=== PATIENT | female | born 1955 | race Caucasian/White ===

== ENCOUNTER → 2022-05-10 13:42 | Outpatient (CLI) | payer MEDICARE, OTHER, SELFPAY ==
--- NOTE | 2022-05-10 | DI.MRI.S_ITS ---
PROCEDURE: MR LUMBAR SPINE WO CON INDICATIONS: Radiculopathy, lumbar region TECHNIQUE: Noncontrast sagittal T1 spin echo and T2 fast echo, sagittal STIR, and T2 fast spin echo through the lumbar spine. COMPARISON: [facility] [place], [place], XR LUMBAR SPINE WITH OBLIQUES PLUS FLEXION EXTENSION, 05/01/2022, 14:17. FINDINGS: Image quality: Excellent. Alignment and Curvature: There is 2 mm grade 1 retrolisthesis of L1 on L2 and trace 1 mm grade 1 retrolisthesis of L2 on L3 and L3 on L4. Mild 3 mm grade 1 retrolisthesis of L5 on S1. Bone Marrow: Marrow is of normal overall signal. Modic type 1 degenerative endplate changes are seen at the anterosuperior endplate of T12. No acute vertebral body compression fractures. Spinal Cord: Conus medullaris terminates at the L1-2 disc space level. Visualized cord demonstrates normal signal and size. Paraspinous Soft Tissues: No paravertebral masses. There is grade 2 fatty infiltration of the paraspinous musculature. T12-L1: There is no significant disc bulging, spinal canal stenosis, or neural foraminal narrowing. L1-L2: Mild grade 1 retrolisthesis of L1 on L2 with disc desiccation and loss of disc space height as well as circumferential disc bulging and right paracentral disc protrusion. Findings is all in mild narrowing of the bilateral neural foramina without significant spinal canal stenosis. L2-L3: Trace grade 1 retrolisthesis of L2 on L3, disc desiccation and loss of disc space height, and circumferential disc bulging is seen with mild crowding of the lateral recesses, but no significant spinal canal stenosis or neural foraminal narrowing. L3-L4: Trace grade 1 retrolisthesis of L3 on L4, mild disc desiccation and loss of disc space height, and circumferential disc bulging as well as mild bilateral facet hypertrophy. Findings result in mild narrowing of the spinal canal and crowding of the lateral recesses without significant neural foraminal narrowing. L4-L5: There is disc desiccation and loss of disc space height with circumferential disc bulging and mild bilateral facet hypertrophy. Findings result in mild crowding of the lateral recesses without significant spinal canal stenosis. There is mild bilateral neural foraminal narrowing. L5-S1: Grade 1 retrolisthesis of L5 on S1 is seen with is disc desiccation and severe loss of disc space height as well as circumferential disc bulging and mild to moderate facet hypertrophy. Findings result in crowding of the lateral recesses that is greater on the right resulting in abutment of the traversing right S1 nerve root. There is moderate to severe right and moderate left neural foraminal narrowing. IMPRESSION: 1. At L5-S1, grade 1 retrolisthesis and superimposed degenerative changes result in moderate to severe right neural foraminal narrowing and moderate left neural foraminal narrowing as well as crowding of the right lateral recess with encroachment of the traversing right S1 nerve root. Recommend correlation would detailed neurologic exam findings. 2. Additional [id number] multilevel degenerative disc disease and facet hypertrophy are seen as described in detail in the body of the report without additional areas of high-grade neural foraminal narrowing or spinal canal stenosis. Dictated by: Jamie Morfin M.D. on 05/10/2022 at 16:33 Approved by: Jamie Morfin M.D. on 05/10/2022 at 16:48
== END ==
PROVIDERS: PCP Registered Nurse; Referring Provider Physical Medicine & Rehabilitation; Visit Provider Physical Medicine & Rehabilitation
DX: M47.27 Other spondylosis with radiculopathy, lumbosacral region (principal); M47.26 Other spondylosis with radiculopathy, lumbar region; M51.16 Intervertebral disc disorders with radiculopathy, lumbar region; M48.07 Spinal stenosis, lumbosacral region; M48.061 Spinal stenosis, lumbar region without neurogenic claudication
CPT/HCPCS: 72148